=== PATIENT | female | born 1950 | race Caucasian/White ===

== ENCOUNTER 2017-12-09 07:44 | Outpatient (CLI) | payer MEDICARE, BC | END 2017-12-09 07:45 | disposition home or self-care (01) | LOC: BICULT 07:44 | PROVIDERS: ATTEND Urology | DX: N20.0 Calculus of kidney (principal); E21.3 Hyperparathyroidism, unspecified; R35.0 Frequency of micturition | CPT/HCPCS: 74018; 76770 ==

== ENCOUNTER 2018-02-11 17:49 | Observation (INO) | payer MEDICARE, BC ==
[2018-02-11 18:39] LABS: #Eosinphils 0.1 thou/uL (0.0-0.7); #Lymphocytes 2.7 thou/uL (1.20-3.40); #Monocytes 0.4 thou/uL (0.11-0.59); #Neutrophils 4.5 thou/uL (1.40-6.50); %Basophils 0.4 % (0.0-1.0); %Eosinophils 0.9 % (0.0-10.0); %Lymphocytes 34.9 % (21.0-51.0); %Monocytes 4.7 % (0.0-10.0); %Neutrophils 59.2 % (42.0-75.0); Hemoglobin 13.5 g/dL (12.0-16.0); Mean Corpuscular HGB CONC 35.9 g/dL (32.0-36.0); Mean Corpuscular Hemoglobin 34.1 pg (27.0-31.0); Mean Corpuscular Volume 95.1 fL (78.0-98.0); Mean Platelet Volume 7.3 fL (7.4-10.4); Platelet Count 275 thou/uL (130-400); RBC Distribution Width 12.5 % (11.5-14.5); Red Blood Cell (RBC) Count 3.97 mill/uL (4.20-5.40); White Blood Cell (WBC) Count 7.7 thou/uL (4.8-10.8)
[2018-02-11 19:04] LABS: ALT (SGPT) 100 U/L (8-55); AST (SGOT) 89 U/L (5-34); Albumin 4.5 g/dL (3.4-4.8); Alkaline Phosphatase 117 U/L (40-150); Anion Gap 17 mmol/L (10-20); BUN (Urea Nitrogen) 17 mg/dL (9.8-20.1); Bilirubin, Total 0.7 mg/dL (0.2-1.2); Calc. Creatinine Clearance 0 mL/min (70-130); Calcium 9.9 mg/dL (7.8-10.44); Carbon Dioxide 23 mmol/L (23-31); Chloride 102 mmol/L (98-107); Estimated GFR-MDRD 54; Globulin 3.2 g/dL (2.4-3.5); Glucose 108 mg/dL (80-115); Magnesium 1.9 mg/dL (1.6-2.6); Potassium 3.6 mmol/L (3.5-5.1); Protein, Total 7.7 g/dL (6.0-8.3); Sodium 138 mmol/L (136-145)
[2018-02-11 19:06] LABS: Troponin I Less than 0.010 ng/mL (< 0.028)
--- NOTE | 2018-02-11 19:14 | RAD ---
PORTABLE CHEST: 02/11/18 HISTORY: Syncope. COMPARISON: 01/06/09. Cardiomegaly. The lungs are clear. No infiltrate or vascular congestion. IMPRESSION: Mild cardiomegaly. No acute lung process. POS: [facility]
[2018-02-12 02:39] VITALS: BMI 38.9
[2018-02-12] MEDS ORDERED: ALPRAZolam 0.5 MG TAB PO PRN (03:21)
[2018-02-12] MEDS ORDERED: Ondansetron HCl/PF 4 MG/2 ML Vial IVP PRN (03:22)
[2018-02-12] MEDS ORDERED: Acetaminophen 325 MG TAB PO PRN (03:22)
[2018-02-12 06:06] LABS: #Eosinphils 0.1 thou/uL (0.0-0.7); #Lymphocytes 2.4 thou/uL (1.20-3.40); #Monocytes 0.5 thou/uL (0.11-0.59); #Neutrophils 4.5 thou/uL (1.40-6.50); %Basophils 0.5 % (0.0-1.0); %Eosinophils 1.2 % (0.0-10.0); %Lymphocytes 32.1 % (21.0-51.0); %Monocytes 6.4 % (0.0-10.0); %Neutrophils 59.8 % (42.0-75.0); Hemoglobin 12.4 g/dL (12.0-16.0); Mean Corpuscular HGB CONC 35.9 g/dL (32.0-36.0); Mean Corpuscular Hemoglobin 34.3 pg (27.0-31.0); Mean Corpuscular Volume 95.5 fL (78.0-98.0); Mean Platelet Volume 7.1 fL (7.4-10.4); Platelet Count 223 thou/uL (130-400); RBC Distribution Width 12.4 % (11.5-14.5); Red Blood Cell (RBC) Count 3.62 mill/uL (4.20-5.40); White Blood Cell (WBC) Count 7.5 thou/uL (4.8-10.8)
[2018-02-12 06:15] LABS: Anion Gap 13 mmol/L (10-20); BUN (Urea Nitrogen) 17 mg/dL (9.8-20.1); Calc. Creatinine Clearance 82 mL/min (70-130); Calcium 8.8 mg/dL (7.8-10.44); Carbon Dioxide 24 mmol/L (23-31); Chloride 105 mmol/L (98-107); Estimated GFR-MDRD 53; Glucose 105 mg/dL (80-115); Potassium 3.5 mmol/L (3.5-5.1); Sodium 138 mmol/L (136-145)
--- NOTE | 2018-02-12 08:19 | HP ---
CODE STATUS: FULL CODE. TIME OF EVALUATION: 12:50 p.m. PRIMARY CARE PHYSICIAN: Dr. Cuca Rivera. CHIEF COMPLAINT: Syncope. HISTORY OF PRESENT ILLNESS: This is a 67-year-old female patient with past medical history of hypert ension, hyperlipidemia, who came to the hospital after having 2 episodes of syncope, one that was on , the second one was yesterday, no clear triggers, no alleviating factors, patient did not re call the event happened, there is no ____ symptoms. She reported that she had no infection. REVIEW OF SYSTEMS: Constitutional: No fever, no chills, no generalized weakness. Respiratory: No cough, no sputum production, no shortness of breath. Cardiovascular: The patient has no chest pain, palpitation, or shortness of breath. Gastrointestinal: No nausea, vomiting, diarrhea or abdominal pain. TEACHING MUSIC LESSONS: No dizziness, headache or feeling lightheaded. The patient also reported episode of syn cope. Genitourinary: No burning with urination. Extremities: No leg swelling. All other systems were reviewed and negative except for the findings mentioned above. PAST MEDICAL HISTORY: Positive for hyperlipidemia, hypertension, kidney stones. PAST SURGICAL HISTORY: Abdominal surgery due to blocked bowel x2, hernia repair, orthopedic surgery, left knee, both ankles. PSYCHIATRIC HISTORY: Includes anxiety and depression. SOCIAL HISTORY: The patient drinks every day with less than 5 drinks per day. No drugs. No smoking . FAMILY HISTORY: Mother had a stroke. Father had lung cancer. REPORTED MEDICATIONS: Bystolic, losartan, alprazolam, atorvastatin, allopurinol, esomeprazole. PHYSICAL EXAMINATION: VITAL SIGNS: On presentation, blood pressure 114/49 with heart rate 61, respiratory rate was 16, tem perature 99, oxygen saturation 96% on room air. GENERAL APPEARANCE: The patient is alert, oriented, not in any acute distress. HEENT: Eyes: Normal conjunctivae. Moist oral mucosa. Anicteric. NECK: No JVD. RESPIRATORY: Bilateral air entry. No rales, no wheezing. Symmetric expansion. CARDIOVASCULAR: Normal rate, regular rhythm, no murmurs, no gallop. No edema. ABDOMEN: Soft, normal bowel sounds. MUSCULOSKELETAL: Baseline range of motion and strength. No tenderness. SKIN: Warm and intact. No pallor, no rash, no redness. NEUROLOGIC: Baseline sensory. No evidence of any new focal weakness. Baseline speech. Cranial ner ves seems to be intact. PSYCHIATRIC: The patient is in a good mood. No anxiety. Oriented and optimal judgment. LABORATORY DATA AND IMAGING: EKG was reviewed. The patient had normal sinus rhythm with a rate of 6 0, waves inverted in V1, V2 and V3. X-Bojorquez was reviewed. The patient has mild cardiomegaly, no acut e process. The labs were checked. Patient has white count 7.7, hemoglobin 13.5, MCV 95.1, platelet count 275. Sodium 138, potassium 3.6, chloride 102, carbon dioxide 23, anion gap 17, AST 89, ALT 100 . The rest of the chemistry is normal. ASSESSMENT AND PLAN: The patient was placed in the hospital for the following medical problems: 1. Syncope that has happened twice, patient has no ____ sudden arrhythmia causing the syncope, no cl ear triggers, we will keep the patient on the monitor, we will do echo, we will do carotid Doppler, a nd consult Cardiology if needed for assistance with this patient. 2. Anxiety, continue with the Xanax. 3. Hyperlipidemia. We will reconcile the home medication. Continue atorvastatin, low cholesterol d iet. 4. Deep venous thrombosis prophylaxis.
--- NOTE | 2018-02-12 08:40 | ULT ---
CAROTID DUPLEX ULTRASOUND: INDICATION: History of syncope. FINDINGS: No occlusion is grossly evident. No large visualized atherosclerotic plaque is noted. Peak systolic velocity in the right CCA is 87.1 cm/s and the left was 64.6 cm/s. Peak systolic velocity in the right ICA was 44.3 cm/s and the left was 55.9 cm/s. The right IC:CC ratio is 0.51 and the left was 0.87. Antegrade flow is seen in both vertebral arteries. IMPRESSION: No hemodynamically significant stenosis in the internal carotid artery. POS: [facility]
[2018-02-12] MEDS: Enoxaparin Sodium 40 MG/0.4 ML SYRINGE SC SCH (08:52)
[2018-02-12] MEDS: Nebivolol HCl 5 MG TAB PO SCH (08:52)
[2018-02-12] MEDS: Allopurinol 300 MG TAB PO SCH (08:52)
[2018-02-12] MEDS: Atorvastatin Calcium 20 MG TAB PO SCH (08:53)
[2018-02-12] MEDS: Escitalopram Oxalate 20 mg Tablet PO SCH (08:53)
[2018-02-13 07:54] VITALS: BP 122/60; TEMP 97.9
--- NOTE | 2018-02-13 08:53 | DIS ---
DATE OF ADMISSION: 02/12/2018 DATE OF DISCHARGE: 02/13/2018 DISPOSITION: Discharged home. PRIMARY CARE PROVIDER: Cuca Rivera MD. FINAL DIAGNOSES: Syncope and collapse, hypertension, dyslipidemia. DISCHARGE MEDICATIONS: Bystolic 5 mg daily, losartan/hydrochlorothiazide 125 one a day, Lexapro 20 m g a day, Lipitor 20 mg a day, allopurinol 300 mg a day, Xanax 0.5 mg p.o. b.i.d. p.r.n. ALLERGIES: No medical allergies. CODE STATUS: FULL. DIET: Heart healthy. PENDING AT THE TIME OF DISCHARGE: Nothing. HOSPITAL COURSE: [facility] with 2 episodes of syncope. Patient's admitting laboratory, CBC essentially normal. Co mp metabolic profile essentially normal except for some minimally elevated transaminases, AST 89 and ALT 100. Patient was monitored, had regular sinus rhythm at 60 plus or minus. Her carotid ultrasoun ds showed no evidence of carotid stenosis. Her echocardiogram showed a LVEF of 60-65 with some minim al mitral insufficiency. The patient has done well during her hospital stay with no recurrent sympto ms. She is desirous of going home. Her vital signs this time, pulse 59, respirations 16, blood pres sure 134/65, temperature 98.4. Cardiorespiratory exam, unremarkable. She is being discharged to [facility] with Dr. Cuca Rivera. She has an appointment on the of this month. The patient also had some diarrhea. Stool lactoferrin was normal. C. difficile was antigen and toxin negative. Shig a toxin, Campylobacter were negative. CONSULTATIONS: None. PROCEDURES: None.
[2018-02-13] MEDS: Allopurinol 300 MG TAB PO SCH (09:41)
[2018-02-13] MEDS: Atorvastatin Calcium 20 MG TAB PO SCH (09:41)
[2018-02-13] MEDS: Escitalopram Oxalate 20 mg Tablet PO SCH (09:41)
[2018-02-13] MEDS: Nebivolol HCl 5 MG TAB PO SCH (09:41)
[2018-02-13] MEDS: Enoxaparin Sodium 40 MG/0.4 ML SYRINGE SC SCH (09:42)
[2018-02-13] MEDS ORDERED: Loperamide HCl 2 MG CAP PO SCH (11:00)
== END 2018-02-13 12:12 | disposition home or self-care (01) ==
LOC: ERS 17:49 → 2SW 21:30
PROVIDERS: ADMIT Hospitalist; ATTEND Hospitalist
DX: R55 Syncope and collapse (principal); I10 Essential (primary) hypertension; E78.5 Hyperlipidemia, unspecified; Z91.040 Latex allergy status; Z79.899 Other long term (current) drug therapy
CPT/HCPCS: 71045; 80048; 80053; 83630; 83735; 84484; 85025 ×2; 87045; 87046; 87324; 87449 ×2; 87899 ×2; 93005; 93306; 93880; 96360; 96361; 96372 ×2; 99285; G0378; 36415; J1650

== ENCOUNTER 2018-05-10 18:25 | Emergency (ER) | payer MEDICARE, BC ==
[2018-05-10] MEDS ORDERED: Lorazepam 2 MG/ML VIAL ONE (18:46)
[2018-05-10 19:11] LABS: #Basophils 0.1 thou/uL (0.0-0.2); #Eosinphils 0.1 thou/uL (0.0-0.7); #Lymphocytes 3.3 thou/uL (1.20-3.40); #Monocytes 0.3 thou/uL (0.11-0.59); #Neutrophils 3.7 thou/uL (1.40-6.50); %Basophils 1.4 % (0.0-1.0); %Eosinophils 0.7 % (0.0-10.0); %Monocytes 4.4 % (0.0-10.0); %Neutrophils 49.6 % (42.0-75.0); Hemoglobin 13.5 g/dL (12.0-16.0); Mean Corpuscular HGB CONC 34.3 g/dL (32.0-36.0); Mean Corpuscular Volume 96.4 fL (78.0-98.0); Mean Platelet Volume 7.6 fL (7.4-10.4); Platelet Count 255 thou/uL (130-400); RBC Distribution Width 12.5 % (11.5-14.5); Red Blood Cell (RBC) Count 4.08 mill/uL (4.20-5.40); White Blood Cell (WBC) Count 7.4 thou/uL (4.8-10.8)
[2018-05-10 19:35] LABS: ALT (SGPT) 52 U/L (8-55); AST (SGOT) 60 U/L (5-34); Acetaminophen Less than 6.0 mcg/mL (10.0-30.0); Albumin 4.5 g/dL (3.4-4.8); Alcohol 221 mg/dL (Less than 10); Alkaline Phosphatase 99 U/L (40-150); Anion Gap 15 mmol/L (10-20); BUN (Urea Nitrogen) 14 mg/dL (9.8-20.1); Bilirubin, Total 0.5 mg/dL (0.2-1.2); Calc. Creatinine Clearance 0 mL/min (70-130); Calcium 9.4 mg/dL (7.8-10.44); Carbon Dioxide 23 mmol/L (23-31); Chloride 105 mmol/L (98-107); Estimated GFR-MDRD 67; Globulin 3.3 g/dL (2.4-3.5); Glucose 110 mg/dL (80-115); Potassium 4.3 mmol/L (3.5-5.1); Protein, Total 7.8 g/dL (6.0-8.3); Salicylate Less than 8.0 mg/dL (15.0-30.0); Sodium 139 mmol/L (136-145)
[2018-05-10 20:00] LABS: Bilirubin Negative (Negative); Blood, Urine Negative (Negative); Clarity CLEAR (Clear); Glucose, Urine (Dipstick) Negative (Negative); Leukocyte Small (Negative); Nitrite Negative (Negative); Protein, Urine (Dipstick) Negative (Neg-Trace); Specific Gravity, Urine 1.006 (1.002-1.036); Urobilinogen 0.2 mg/dL (0.2-1.0)
[2018-05-10 20:02] LABS: Bacteria/HPF 4+ HPF (None Seen); Hyaline Casts/LPF 0-3 HYALINE CAST LPF (0-3 Hyaline); Pathc Cast-AUWi Flag 0.14 (0-2.49); RBC/HPF 0-3 HPF (0-3); Squamous Epithelial None Seen HPF (0-3)
[2018-05-10 20:11] LABS: Amphetamine Not Detected (NotDetected); Barbiturates Screen Not Detected (NotDetected); Benzodiazepine Screen Not Detected (NotDetected); Cocaine Metabolite Screen Not Detected (NotDetected); Medtox Control Line Valid? VALID (VALID); Medtox Reader # READER 1; Methadone Not Detected (NotDetected); Methamphetamine Not Detected (NotDetected); Opiate Screen Not Detected (NotDetected); Oxycodone Screen Not Detected (NotDetected); Phencyclidine (PCP) Not Detected (NotDetected); THC/Cannabinoid Screen Not Detected (NotDetected); Tricyclic Screen Not Detected (NotDetected)
== END 2018-05-11 01:41 | disposition home or self-care (01) ==
LOC: ERS 18:25
DX: F32.9 Major depressive disorder, single episode, unspecified (principal); F10.129 Alcohol abuse with intoxication, unspecified; E78.5 Hyperlipidemia, unspecified; I10 Essential (primary) hypertension; Z87.442 Personal history of urinary calculi; F41.9 Anxiety disorder, unspecified; Z79.899 Other long term (current) drug therapy
CPT/HCPCS: 36415; 80053; 80306; 80307; 81003; 81015; 84443; 85025; 93005; 96372; J2060

== ENCOUNTER 2018-06-26 15:21 | Outpatient (CLI) | payer MEDICARE, BC | END 2018-06-26 15:22 | disposition home or self-care (01) | LOC: BICMAMMO 15:21 | PROVIDERS: ATTEND Physician Assistant | DX: Z12.31 Encounter for screening mammogram for malignant neoplasm of breast (principal); Z80.3 Family history of malignant neoplasm of breast | CPT/HCPCS: 77063; 77067 ==

== ENCOUNTER 2018-10-05 18:07 | Emergency (ER) | payer MEDICARE, BC ==
[2018-10-05] MEDS ORDERED: Morphine 4 MG/ML VIAL ONE (18:33)
--- NOTE | 2018-10-05 19:10 | RAD ---
PORTABLE CHEST: 10/05/18 HISTORY: Fall. COMPARISON: 02/11/18 study. Heart size is slightly enlarged. Mediastinal structures are unremarkable. The lungs are clear of infi ltrates. No rib fractures identified. IMPRESSION: Mild cardiomegaly. POS: [facility]
[2018-10-05 19:17] LABS: #Basophils 0.1 thou/uL (0.0-0.2); #Eosinphils 0.1 thou/uL (0.0-0.7); #Lymphocytes 2.3 thou/uL (1.20-3.40); #Monocytes 0.4 thou/uL (0.11-0.59); #Neutrophils 4.7 thou/uL (1.40-6.50); %Basophils 0.7 % (0.0-1.0); %Eosinophils 1.5 % (0.0-10.0); %Lymphocytes 30.5 % (21.0-51.0); %Monocytes 5.7 % (0.0-10.0); %Neutrophils 61.6 % (42.0-75.0); Hemoglobin 12.3 g/dL (12.0-16.0); Mean Corpuscular HGB CONC 34.3 g/dL (32.0-36.0); Mean Corpuscular Hemoglobin 32.1 pg (27.0-31.0); Mean Corpuscular Volume 93.7 fL (78.0-98.0); Mean Platelet Volume 7.5 fL (7.4-10.4); Platelet Count 241 thou/uL (130-400); RBC Distribution Width 12.5 % (11.5-14.5); Red Blood Cell (RBC) Count 3.84 mill/uL (4.20-5.40); White Blood Cell (WBC) Count 7.6 thou/uL (4.8-10.8)
[2018-10-05] MEDS ORDERED: Adacel (T-DAP) 0.5 ML SYRINGE ONE ×2 (19:20→19:28)
[2018-10-05] MEDS ORDERED: Lidocaine 1% w/Epinephrine 1:100K 20 ML VIAL ONE (19:20)
[2018-10-05 19:28] LABS: ALT (SGPT) 26 U/L (8-55); AST (SGOT) 27 U/L (5-34); Albumin 4.1 g/dL (3.4-4.8); Alkaline Phosphatase 92 U/L (40-150); Anion Gap 13 mmol/L (10-20); BUN (Urea Nitrogen) 13 mg/dL (9.8-20.1); Bilirubin, Total 0.4 mg/dL (0.2-1.2); CK (CPK) 177 U/L (29-168); Calc. Creatinine Clearance 0 mL/min (70-130); Calcium 9.3 mg/dL (7.8-10.44); Carbon Dioxide 27 mmol/L (23-31); Chloride 105 mmol/L (98-107); Estimated GFR-MDRD 71; Globulin 2.5 g/dL (2.4-3.5); Glucose 89 mg/dL (80-115); Potassium 3.5 mmol/L (3.5-5.1); Protein, Total 6.6 g/dL (6.0-8.3); Sodium 141 mmol/L (136-145)
--- NOTE | 2018-10-05 19:35 | CT ---
NONCONTRAST CT HEAD: 10/05/18 HISTORY: Altered mental status. Post fall. Laceration of posterior head. COMPARISON: 01/06/09. FINDINGS: There is scattered areas of mild diminished attenuation of the periventricular white matter which are nonspecific but likely reflective of mild chronic small vessel ischemic changes. There is no evidenc e of an acute cortical infarction, hemorrhage, mass effect, or midline shift. Cerebral and cerebellar volume loss is noted. The ventricular system is normal in size, shape and pos ition for the degree of sulcal atrophy. The visualized paranasal sinuses and mastoid air cells are clear. There is posterior parietal scalp soft tissue swelling with gas in subcutaneous soft tissues related to laceration. No underlying calvarial fracture is appreciated. IMPRESSION: 1. No acute intracranial abnormalities demonstrated. 2. Chronic small vessel ischemic changes and cerebral as well as cerebellar volume loss. 3. Posterior parietal scalp hematoma and associated laceration. POS: [facility]
--- NOTE | 2018-10-06 12:32 | EKG ---
Test Reason : Blood Pressure : / mmHG Vent. Rate : 058 BPM Atrial Rate : 058 BPM P-R Int : 200 ms QRS Dur : 096 ms QT Int : 468 ms P-R-T Axes : 056 -31 027 degrees QTc Int : 459 ms Sinus bradycardia Left axis deviation Abnormal ECG Confirmed by CARMEN MICHEL DO ([id number]), rewrite editor FREDY LLANOS ([id number]) on 10/06/2018 12:31:40 PM Referred By: Confirmed By:CARMEN MICHEL DO
== END 2018-10-05 20:21 | disposition home or self-care (01) ==
LOC: ERS 18:07
DX: S01.01XA Laceration without foreign body of scalp, initial encounter (principal); E78.5 Hyperlipidemia, unspecified; F41.9 Anxiety disorder, unspecified; I10 Essential (primary) hypertension; F32.9 Major depressive disorder, single episode, unspecified; Z79.899 Other long term (current) drug therapy; Z87.442 Personal history of urinary calculi; W19.XXXA Unspecified fall, initial encounter
CPT/HCPCS: 12002; 36415; 70450; 71045; 80053; 82550; 84484; 85025; 90471; 90715; 93005; 96372; J2001; J2270

== ENCOUNTER 2018-11-02 13:27 | Outpatient (CLI) | payer MEDICARE, BC | END 2018-11-02 13:28 | disposition home or self-care (01) | LOC: ULT 13:27 | PROVIDERS: ATTEND Internal Medicine | DX: I51.7 Cardiomegaly (principal); I08.3 Combined rheumatic disorders of mitral, aortic and tricuspid valves | CPT/HCPCS: 93306 ==

== ENCOUNTER 2018-12-07 10:26 | Outpatient (CLI) | payer MEDICARE, BC ==
--- NOTE | 2018-12-07 10:58 | ULT ---
US Renal Bilateral STANDARD History: [Kidney stones] Comparison: Ultrasound exam 2018 Findings: Real-time grayscale and color evaluation of the kidneys and urinary bladder was performed. A kidney measures 10 x 4.2 x 4 cm and the left kidney measures 10.7 x 4.3 x 3.3 cm. Calculus interpol ar left kidney. No mass or hydronephrosis. Urinary bladder volume is unremarkable. Impression: Nonobstructive interpolar left renal calculus.
--- NOTE | 2018-12-07 11:02 | RAD ---
EXAM: Single view of the abdomen HISTORY: Nephrolithiasis COMPARISON: 11/19/2015 FINDINGS: Single view of the abdomen shows a nonspecific, nonobstructive bowel gas pattern. No suspi cious calcifications are seen. The bones are unremarkable. Phleboliths are seen in the pelvis. Cholecystectomy clips are present. IMPRESSION: Unremarkable exam
== END 2018-12-07 10:27 | disposition home or self-care (01) ==
LOC: BICULT 10:26
PROVIDERS: ATTEND Urology
DX: N20.0 Calculus of kidney (principal)
CPT/HCPCS: 74018; 76770

== ENCOUNTER 2018-12-12 10:17 | Outpatient (CLI) | payer MEDICARE, BC ==
--- NOTE | 2018-12-12 12:31 | BD ---
Exam: DEXA Bone Density History: Post-menopausal osteoporosis screening. Lumbar Spine: BMD (g/cm2) L1 0.993 T-Score: 0.0 L2 0.933 T-Score: -0.9 L3 0.947 T-Score: -1.2 L4 0.939 T-Score: -1.1 L1-L4 0.951 T-Score: -0.9 Femoral Neck: 0.793 T-Score: -0.5 Total Femur: 1.000 T-Score: 0.5 Impression: Bone mineral density of the lumbar spine and femoral neck are both within normal range. POS: [facility]
== END 2018-12-12 10:18 | disposition home or self-care (01) ==
LOC: BICMAMMO 10:17
PROVIDERS: ATTEND Internal Medicine
DX: Z78.0 Asymptomatic menopausal state (principal)
CPT/HCPCS: 77080

== ENCOUNTER 2019-02-24 22:08 | Emergency (ER) | payer MEDICARE, BC ==
--- NOTE | 2019-02-24 23:25 | CT ---
BRAIN CT WITHOUT IV CONTRAST: 02/24/19 HISTORY: Injury, fall, scalp posterior hematoma. No focal mass or midline shift. No intra or extra-axial hemorrhage. Sinuses and mastoids are clear of acute process. Posterior right sided scalp hematoma. IMPRESSION: Scalp hematoma. No mass or bleed or other significant acute intracranial process. POS: [facility]
--- NOTE | 2019-02-24 23:27 | CT ---
CERVICAL SPINE CT SCAN WITHOUT IV CONTRAST: 02/24/19 HISTORY: Injury, fall. Bone demineralization. Disc osteophytosis particularly at C5-C6 with some moderate associated canal, lateral recess, and foraminal stenosis. No evidence for acute fracture or dislocation. IMPRESSION: Cervical spondylosis. Bone demineralization. No acute fracture or dislocation. POS: [facility]
[2019-02-24] MEDS ORDERED: traMADol HCl 50 MG TAB ONE (23:49)
[2019-02-24] MEDS ORDERED: Adacel (T-DAP) 0.5 ML SYRINGE ONE (23:50)
[2019-02-25] MEDS ORDERED: Lidocaine 1% w/Epinephrine 1:100K 20 ML VIAL ONE (00:19)
== END 2019-02-25 00:01 | disposition home or self-care (01) ==
LOC: ERS 22:08
DX: S01.01XA Laceration without foreign body of scalp, initial encounter (principal); E78.5 Hyperlipidemia, unspecified; I10 Essential (primary) hypertension; F41.9 Anxiety disorder, unspecified; F32.9 Major depressive disorder, single episode, unspecified; Z79.899 Other long term (current) drug therapy; W19.XXXA Unspecified fall, initial encounter
CPT/HCPCS: 12001; 70450; 72125; 90471; 90715; J2001

== ENCOUNTER 2019-03-22 08:32 | Outpatient (CLI) | payer MEDICARE, BC ==
[2019-03-22 14:24] LABS: #Eosinphils 0.1 thou/uL (0.0-0.7); #Lymphocytes 2.1 thou/uL (1.20-3.40); #Monocytes 0.3 thou/uL (0.11-0.59); %Basophils 0.7 % (0.0-1.0); %Eosinophils 0.8 % (0.0-10.0); %Lymphocytes 32.1 % (21.0-51.0); %Monocytes 4.8 % (0.0-10.0); %Neutrophils 61.6 % (42.0-75.0); Hemoglobin 12.9 g/dL (12.0-16.0); Mean Corpuscular HGB CONC 34.2 g/dL (32.0-36.0); Mean Corpuscular Hemoglobin 30.4 pg (27.0-31.0); Mean Corpuscular Volume 89.1 fL (78.0-98.0); Mean Platelet Volume 8.4 fL (7.4-10.4); Platelet Count 231 thou/uL (130-400); RBC Distribution Width 12.5 % (11.5-14.5); Red Blood Cell (RBC) Count 4.22 mill/uL (4.20-5.40); White Blood Cell (WBC) Count 6.5 thou/uL (4.8-10.8)
[2019-03-22 14:29] LABS: Prothrombin Time 13.5 SEC (12.0-14.7)
[2019-03-22 14:38] LABS: Anion Gap 13 mmol/L (10-20); BUN (Urea Nitrogen) 13 mg/dL (9.8-20.1); Calc. Creatinine Clearance 0 mL/min (70-130); Calcium 9.4 mg/dL (7.8-10.44); Carbon Dioxide 26 mmol/L (23-31); Chloride 104 mmol/L (98-107); Estimated GFR-MDRD 78; Glucose 90 mg/dL (80-115); Potassium 3.7 mmol/L (3.5-5.1); Sodium 139 mmol/L (136-145)
[2019-03-22 15:18] LABS: Bacteria/HPF None Seen HPF (None Seen); Bilirubin Negative (Negative); Blood, Urine Negative (Negative); Clarity Clear (Clear); Glucose, Urine (Dipstick) Normal (Negative); Leukocyte 75 Leu/uL (Negative); Nitrite Negative (Negative); Protein, Urine (Dipstick) Negative (Neg-Trace); RBC/HPF 0-3 HPF (0-3); Squamous Epithelial 0-3 HPF (0-3); Urobilinogen Normal mg/dL (Less than 2); WBC/HPF 0-3 HPF (0-3)
== END 2019-03-22 08:33 | disposition home or self-care (01) ==
LOC: LABBT 08:32
PROVIDERS: ATTEND Orthopaedic Surgery
DX: Z01.818 Encounter for other preprocedural examination (principal); M17.11 Unilateral primary osteoarthritis, right knee
CPT/HCPCS: 80048; 81001; 85025; 85610; 87081; 93005; 93010

== ENCOUNTER 2019-03-22 13:00 | Inpatient (IN) | payer MEDICARE, BC ==
[2019-03-22 12:56] VITALS: BMI 31.5
[2019-04-03] MEDS ORDERED: Tranexamic Acid 1,000 MG/10 ML VIAL ONE (08:28)
[2019-04-03] MEDS ORDERED: Sodium Chloride 0.9% 100 ML ONE (08:28)
[2019-04-03] MEDS ORDERED: Acetaminophen 325 MG TAB PO PRN (08:44)
[2019-04-03] MEDS ORDERED: Ketorolac Tromethamine 30 MG/ML VIAL IVP PRN ×2 (08:44→09:43)
[2019-04-03] MEDS ORDERED: Morphine 4 MG/ML VIAL SLOW IVP PRN (08:44)
[2019-04-03] MEDS ORDERED: Promethazine HCl 25 MG/ML VIAL IM PRN ×3 (08:44→12:15)
[2019-04-03] MEDS ORDERED: Ondansetron PF 4 MG/2 ML Vial IVP PRN ×2 (08:44→09:43)
[2019-04-03] MEDS ORDERED: traMADol HCl 50 MG TAB PO PRN ×3 (08:44→09:43)
[2019-04-03] MEDS ORDERED: HYDROcodone/Acetaminophen 10/325 mg Tablet PO PRN ×2 (08:44)
[2019-04-03] MEDS ORDERED: Zolpidem Tartrate 5 MG TAB PO PRN ×2 (08:44→09:43)
[2019-04-03] MEDS ORDERED: diphenhydrAMINE 25 MG CAP PO PRN (08:44)
[2019-04-03] MEDS ORDERED: Midazolam HCl 2 mg/2 ml Vial ONE (08:53)
[2019-04-03] MEDS ORDERED: Fentanyl 100 MCG/2 ML VIAL ONE ×2 (08:53→12:35)
[2019-04-03] MEDS ORDERED: Ondansetron HCl/PF 4 MG/2 ML Vial IVP PRN ×2 (08:55→12:15)
[2019-04-03] MEDS ORDERED: Ropivacaine HCl/PF 250 ML in Premix Bag 1 BAG NERVE BLCK SCH (09:43)
[2019-04-03] MEDS ORDERED: Fentanyl 100 MCG/2 ML VIAL IV PRN (09:44)
[2019-04-03] MEDS ORDERED: PACU-Morphine 4MG/ML VIAL SLOW IVP PRN (12:15)
[2019-04-03] MEDS ORDERED: HYDROmorphone 2 MG/ML VIAL SLOW IVP PRN (12:15)
[2019-04-03] MEDS ORDERED: Promethazine HCl 25 MG/ML VIAL SLOW IVP PRN (12:15)
--- NOTE | 2019-04-03 13:31 | OP ---
DATE OF PROCEDURE: 04/03/2019 PREOPERATIVE DIAGNOSIS: End-stage tricompartmental osteoarthritis, right knee. POSTOPERATIVE DIAGNOSIS: End-stage tricompartmental osteoarthritis, right knee. OPERATIVE PROCEDURE: Cemented cruciate sparing computer assisted navigated right total knee arthroplasty. SKATE HOP: Brain Fletcher PA-C ANESTHESIA: General via LMA augmented with indwelling adductor canal block and a single-shot anterior sciatic block. COMPONENTS USED: [employer] triathlon size 4 cruciate sparing cemented femoral component with a size 3 cemented primary tibial baseplate, 9 mm polyethylene fixed bearing insert, and an A29 patellar button. TOURNIQUET TIME: 59 minutes at 300 mmHg. ESTIMATED BLOOD LOSS: Less than 100. INPUT: 1 L of crystalloid. OUTPUT: Output was 200 mL clear yellow urine. FINDINGS: End-stage severe degenerative tricompartmental disease, [id number] arthrosis, periarticular osteophyte formation, large serous effusion, hypertrophic synovium, and drains consistent with chronic degenerative genu varum. DRAINS: None. SPECIMENS: None. COMPLICATIONS: None. COUNTS: Correct. INDICATION FOR SURGERY: Kaila is a 69-year-old white female, who has had progressive not right knee pain and problem with standing and walking for the last 5 to 7 years. She has failed conservative management and elected to proceed with total knee arthroplasty as definitive treatment of her pain. PROCEDURE IN DETAIL: After informed consent was obtained in the preoperative holding area, the patient was taken to the operative suite where general anesthesia was induced. Once adequate level of general anesthesia was obtained, the patient was positioned and a well-padded tourniquet was placed around the right proximal thigh. The right lower extremity was then prepped and draped in the usual sterile fashion. Prior to exsanguination, a time-out was called and all members of the surgical team agreed upon site, surgeon, and patient. The extremity was then exsanguinated and the tourniquet was raised. A midline longitudinal incision was then made directly over the patella extending 2 fingerbreadths above the superior pole of the patella and 2 fingerbreadths inferior to the inferior patellar pole of the patella. Deeper subcutaneous layers were dissected sharply and local bleeding was controlled with Bovie electrocautery. A quad tendon longitudinal split was then made sharply and a median parapatellar arthrotomy was carried out both sharp and with Bovie electrocautery, carried down to 1 fingerbreadth medial to the tibial tubercle. The knee was then placed into flexion and the patella was everted nicely, and a copious fat pad ectomy was performed allowing for greater exposure of the tibia. The computer-assisted distal femoral fiducial was then placed and pinned firmly, and the distal femoral cutting guide was pinned firmly into place. The oscillating saw was then used to remove the appropriate amount of bone. The 4-in-1 cutting block was then placed on the distal femur and the oscillating saw was used to remove the appropriate amount of bone off the anterior, posterior, and chamfer cuts. After completion of bone cuts, the anterior cruciate ligament was resected sharply and the posterior cruciate ligament retractor was placed and the tibia was subluxed for better exposure. Partial meniscectomies were carried out, and the tibial computer-assisted fiducial was pinned, and the cutting guide was placed. Oscillating saw was then used to remove the bone, with Hohmann retractors used to take care and protect the collateral ligaments. After the tibial resection was performed, a laminar hospital staff pharmacist was placed in between the freshened bone cuts. The knee placed at 90 degrees and further bilateral meniscectomies were carried out, and the curved osteotome and curettage were used to remove any excess bone spurs in the posterior compartment. The trial femoral component, tibial baseplate were placed with the appropriate polyethylene trial insert with an appropriate polyethylene spacer and patellar button. The knee was taken through full range of motion with flexion and extension from 0 to 90 degrees and patellar broach squarely in the trochlea without any squinting or subluxation noted. The knee was also stable to varus and valgus stressing at 0, 15, 45, and 90 degrees of flexion. The drawer was negative. All trial components were then removed and the keel punch was used to provide the appropriate defect in the tibia with a mallet. The freshened bone cuts were copiously irrigated with pulsatile lavage of about 1.5 L to remove all excess debris. The freshened bone cuts were then dried with suction and lap sponge. The knee was placed in flexion and retractors were placed to provide access to all bone cuts. Tobramycin-impregnated methyl methacrylate cement was then placed on the freshened bone cuts and implants which were malleted firmly into place. Curettage and Points elevators were used to remove any excess bone cement. The knee was placed into full extension and the patellar button was placed under compression, and the cement was allowed to cure. Once completed, the components were again taken through full range of motion and copious irrigation of the knee was carried out with another liter of normal saline. All components were inspected fully with full range of motion and varus and valgus stressing. There was no laxity noted and full extension was observed clinically. Primary closure was accomplished with #2 interrupted Vicryl stitch of the arthrotomy defect. This was oversewn with a #2 running Quill barbed stitch. The gravitational platelet system was then injected into the arthrotomy prior to closure. The subcutaneous layer was then closed with a running 0 barbed Monocryl stitch and skin closure accomplished with a running subcuticular 3-0 Monocryl barbed Quill stitch and augmented with cement on the skin. Tourniquet was lowered. Good spontaneous return of distal pulses was noted clinically and a sterile dressing was applied to the incision. The procedure was terminated without any complications. The patient was awakened in the operative suite, and the patient was taken to the recovery room in stable condition. Job ID: [id number]
--- NOTE | 2019-04-03 13:52 | RAD ---
RIGHT KNEE: 04/03/19 Two views. HISTORY: Postop follow-up knee replacement. FINDINGS/IMPRESSION: Knee prosthesis has been placed. Components appears in adequate position and alignment. Postop leyva es are noted at the knee joint. POS: [facility]
[2019-04-03] MEDS ORDERED: Ropivacaine 0.5% HCl/PF (150 MG/30 ML VIAL) ONE (15:03)
[2019-04-03] MEDS ORDERED: Ropivacaine 0.2% HCl/PF (40 MG/20 ML VIAL) ONE (15:03)
[2019-04-03] MEDS ORDERED: ePHEDrine 50 MG/ML VIAL ONE (15:16)
[2019-04-03] MEDS ORDERED: Ketorolac Tromethamine 30 MG/ML VIAL ONE (15:16)
[2019-04-03] MEDS ORDERED: Lidocaine 1% PF 5 ML VIAL ONE (15:16)
[2019-04-03] MEDS ORDERED: Glycopyrrolate 0.2 MG/ML 5 ML SYRINGE ONE (15:16)
[2019-04-03] MEDS ORDERED: Ondansetron PF 4 MG/2 ML Vial ONE (15:16)
[2019-04-03] MEDS ORDERED: Dexamethasone 20 MG/5 ML VIAL ONE (15:16)
[2019-04-03] MEDS ORDERED: PROPOFOL 200 MG/20 ML VIAL ONE (15:16)
--- NOTE | 2019-04-03 16:11 | PDOC.HOSPP ---
- Subjective Encounter Date: 04/03/19 Encounter Time: 16:09 Subjective: pt is admitted for right total knee replacement, consulted for medical management Patient seen and examined. No new complaints. - Objective Vital Signs & Weight: Weight Weight 178 lb Additional Labs: [facility] Radiology Reviewed by me: Yes (knee xray reviewed ) Hospitalist ROS - Review of Systems ENT: denies: ear pain, ear discharge, nose pain, nose discharge, nose congestion , mouth pain, mouth swelling, throat pain, throat swelling, other Respiratory: denies: cough, dry, shortness of breath, hemoptysis, SOB with excertion, pleuritic pain, sputum, wheezing, other Cardiovascular: denies: chest pain, palpitations, orthopnea, paroxysmal noc. dyspnea, edema, light headedness, other Gastrointestinal: denies: nausea, vomitting, abdominal pain, diarrhea, constipation, melena, hematochezia, other Genitourinary: denies: dysuria, frequency, incontinence, hematuria, retention, other Musculoskeletal: denies: neck pain, shoulder pain, arm pain, back pain, hand pain, leg pain, foot pain, other Skin: denies: rash, lesions, baljeet, bruising, other - Exam General Appearance: NAD, awake alert Eye: PERRL, anicteric sclera ENT: normocephalic atraumatic, no oropharyngeal lesions Neck: supple, symmetric, no JVD, no thyromegaly Heart: RRR, no murmur, no gallops, no rubs Respiratory: CTAB, no wheezes, no rales, no ronchi Gastrointestinal: soft, non-tender, non-distended, normal bowel sounds Extremities: no cyanosis, no clubbing, no edema Extremeties - other findings: right knee with dressing, nerve block in place Skin: normal turgor, no lesions, no rashes Neurological: CN's grossly intact, normal sensation to touch Musculoskeletal: normal tone, normal strength, no muscle wasting Psychiatric: normal affect, normal behavior Hosp A/P (1) Status post total right knee replacement Code(s): Z96.651 - PRESENCE OF RIGHT ARTIFICIAL KNEE JOINT Status: Acute (2) Anxiety and depression Code(s): F41.9 - ANXIETY DISORDER, UNSPECIFIED; F32.9 - MAJOR DEPRESSIVE DISORDER, SINGLE EPISODE, UNSPECIFIED Status: Chronic (3) Dyslipidemia Code(s): E78.5 - HYPERLIPIDEMIA, UNSPECIFIED Status: Chronic (4) GERD (gastroesophageal reflux disease) Code(s): K21.9 - GASTRO-ESOPHAGEAL REFLUX DISEASE WITHOUT ESOPHAGITIS Status: Chronic (5) Gout Code(s): M10.9 - GOUT, UNSPECIFIED Status: Chronic (6) HTN (hypertension) Code(s): I10 - ESSENTIAL (PRIMARY) HYPERTENSION Status: Chronic (7) Obesity (BMI 30.0-34.9) Code(s): E66.9 - OBESITY, UNSPECIFIED Status: Chronic (8) Ventral hernia Code(s): K43.9 - VENTRAL HERNIA WITHOUT OBSTRUCTION OR GANGRENE Status: Chronic - Plan old records reviewed/req, PT/OT Continue aspirin for DVT prophylaxis as per protocol Home medication has been reconciled Medically stable continue PT/OT as per protocol Nerve block as per anesthesia Medication reviewed as above Symptomatic treatment Pain control code status - full code
[2019-04-03] MEDS: Sodium Chloride 0.9% 1,000 ML IV SCH ×3 (17:17→22:58)
[2019-04-03] MEDS: Allopurinol 300 MG TAB PO SCH (17:17)
[2019-04-03] MEDS: Losartan/Hydrochlorothiazide 100 mg/25 mg Tablet PO SCH (17:18)
[2019-04-03] MEDS: Aspirin 81 mg Enteric Coated Tablet PO SCH ×2 (17:18→19:49)
[2019-04-03] MEDS: Nebivolol HCl 5 MG TAB PO SCH (17:18)
[2019-04-03] MEDS: CEFAZOLIN 2 GM in Premix Bag 1 BAG IVPB SCH ×2 (17:26→23:13)
[2019-04-03] MEDS: ALPRAZolam 0.5 MG TAB PO SCH (19:49)
[2019-04-03] MEDS: traZODone HCl 50 MG TAB PO SCH (19:49)
[2019-04-03] MEDS: Trospium 20 MG TAB PO SCH (19:50)
[2019-04-04 04:40] LABS: Hemoglobin 11.3 g/dL (12.0-16.0); Mean Corpuscular HGB CONC 33.8 g/dL (32.0-36.0); Mean Corpuscular Hemoglobin 30.9 pg (27.0-31.0); Mean Corpuscular Volume 91.3 fL (78.0-98.0); Mean Platelet Volume 8.1 fL (7.4-10.4); Platelet Count 198 thou/uL (130-400); RBC Distribution Width 12.4 % (11.5-14.5); Red Blood Cell (RBC) Count 3.65 mill/uL (4.20-5.40); White Blood Cell (WBC) Count 8.1 thou/uL (4.8-10.8)
[2019-04-04] MEDS: Senokot S 8.6-50 MG TAB PO SCH ×2 (07:41→19:41)
[2019-04-04] MEDS: Allopurinol 300 MG TAB PO SCH (07:41)
[2019-04-04] MEDS: Multivitamin W/ Minerals 1 TAB PO SCH (07:41)
[2019-04-04] MEDS: Aspirin 81 mg Enteric Coated Tablet PO SCH ×2 (07:41→19:42)
[2019-04-04] MEDS: Losartan/Hydrochlorothiazide 100 mg/25 mg Tablet PO SCH ×2 (07:42→10:46)
[2019-04-04] MEDS: Ferrous Gluconate 324 MG TAB PO SCH ×2 (07:42→19:42)
[2019-04-04] MEDS: Trospium 20 MG TAB PO SCH ×2 (07:42→19:41)
[2019-04-04] MEDS: Nebivolol HCl 5 MG TAB PO SCH (07:42)
[2019-04-04] MEDS ORDERED: HYDROcodone/Acetaminophen 7.5/325 mg Tablet PO PRN (15:12)
[2019-04-04] MEDS: HYDROcodone/Acetaminophen 7.5/325 mg Tablet PO PRN ×2 (16:06→19:47)
[2019-04-04] MEDS: Sodium Chloride 0.9% 1,000 ML IV SCH ×2 (16:10→19:49)
[2019-04-04] MEDS ORDERED: Prevnar 13-Val Conj/PF 0.5 ML SYRINGE IM ONE (17:00)
--- NOTE | 2019-04-04 19:30 | PDOC.HOSPP ---
- Subjective Encounter Date: 04/04/19 Encounter Time: 09:00 Subjective: Patient seen and examined for med mngt. No CP or SOB. No new complaints. No overnight events - Objective Vital Signs & Weight: Vital Signs (12 hours) Temp Pulse Resp BP Pulse Ox 04/04/19 15:27 99.8 F H 64 16 134/78 96 04/04/19 12:50 98.4 F 69 16 119/72 99 04/04/19 08:00 95 Weight Admit Weight 178 lb Weight 178 lb I&O: 04/03/19 04/04/19 04/05/19 06:59 06:59 06:59 Intake Total 850 Output Total 1775 Balance -925 Result Diagrams: 04/04/19 04:17 EKG Reviewed by me: Yes (SB) Hospitalist ROS - Review of Systems Respiratory: denies: cough, dry, shortness of breath, hemoptysis, SOB with excertion, pleuritic pain, sputum, wheezing, other Cardiovascular: denies: chest pain, palpitations, orthopnea, paroxysmal noc. dyspnea, edema, light headedness, other Gastrointestinal: denies: nausea, vomiting, abdominal pain, diarrhea, constipation, melena, hematochezia, other - Medication Medications: Active Medications Generic Name Dose Route Start Last Admin Trade Name Freq PRN Reason Stop Dose Admin Hydrocodone Bitart/Acetaminophen 1 tab 04/04/19 15:12 04/04/19 16:06 [place] 7.5/325 PO 1 tab Q4H PRN Administration Mild Pain (1-3) Allopurinol 300 mg 04/03/19 09:00 04/04/19 07:41 Zyloprim PO 300 mg DAILY CLOTILDE Administration Alprazolam 0.5 mg 04/03/19 21:00 04/03/19 19:49 Xanax PO 0.5 mg HS CLOTILDE Administration Aspirin 81 mg 04/03/19 09:00 04/04/19 07:41 Ecotrin PO 81 mg BID CLOTILDE Administration Ferrous Gluconate 324 mg 04/04/19 09:00 04/04/19 07:42 Fergon PO 324 mg BID CLOTILDE Administration HCTZ/Losartan Potassium 1 tab 04/04/19 09:00 04/04/19 10:46 Hyzaar 100/25 PO Not Given DAILY CLOTILDE Sodium Chloride 1,000 mls @ 100 mls/hr 04/03/19 08:45 04/04/19 16:10 Normal Saline 0.9% IV Not Given .Q10H CLOTILDE Ropivacaine 250 ml/ Device 250 mls @ 10 mls/hr 04/03/19 09:43 04/04/19 13:18 NERVE BLCK 250 mls INF CLOTILDE Administration Iron/Minerals/Multivitamins 1 tab 04/04/19 09:00 04/04/19 07:41 Theragran M PO 1 tab DAILY CLOTILDE Administration Nebivolol 5 mg 04/03/19 09:00 04/04/19 07:42 Bystolic PO Not Given DAILY CLOTILDE Pantoprazole Sodium 40 mg 04/04/19 09:00 04/04/19 07:41 Protonix PO 40 mg DAILY CLOTILDE Administration Senna/Docusate Sodium 2 tab 04/04/19 09:00 04/04/19 07:41 Senokot S PO 2 tab BID CLOTILDE Administration Sertraline HCl 100 mg 04/03/19 09:00 04/04/19 07:42 Zoloft PO 100 mg DAILY CLOTILDE Administration Tramadol HCl 100 mg 04/03/19 09:43 04/04/19 13:17 Ultram PO 100 mg Q6H PRN Administration Moderate Pain 4-6 Trazodone HCl 100 mg 04/03/19 21:00 04/03/19 19:49 Desyrel PO 100 mg HS CLOTILDE Administration Trospium 20 mg 04/03/19 21:00 04/04/19 07:42 Trospium PO 20 mg BID CLOTILDE Administration - Exam General Appearance: NAD Neck: supple, no JVD Heart: RRR, no gallops, no rubs Respiratory: CTAB, no wheezes, no rales, normal chest expansion Gastrointestinal: soft, non-tender, non-distended, normal bowel sounds Extremities: no edema Neurological: no new deficit Hosp A/P (1) Dyslipidemia Code(s): E78.5 - HYPERLIPIDEMIA, UNSPECIFIED Status: Chronic (2) GERD (gastroesophageal reflux disease) Code(s): K21.9 - GASTRO-ESOPHAGEAL REFLUX DISEASE WITHOUT ESOPHAGITIS Status: Chronic (3) Gout Code(s): M10.9 - GOUT, UNSPECIFIED Status: Chronic (4) HTN (hypertension) Code(s): I10 - ESSENTIAL (PRIMARY) HYPERTENSION Status: Chronic (5) Obesity (BMI 30.0-34.9) Code(s): E66.9 - OBESITY, UNSPECIFIED Status: Chronic (6) Anxiety Code(s): F41.9 - ANXIETY DISORDER, UNSPECIFIED Status: Chronic - Plan incentive spirometry, DVT proph w/SCDs Cont Allopurinol Hold Losartan/HCTX today Cont Zoloft and Bystolic Will follow.
[2019-04-04] MEDS: ALPRAZolam 0.5 MG TAB PO SCH (19:41)
[2019-04-04] MEDS: traZODone HCl 50 MG TAB PO SCH (19:42)
[2019-04-05] MEDS: HYDROcodone/Acetaminophen 7.5/325 mg Tablet PO PRN ×4 (00:31→13:59)
[2019-04-05 05:19] LABS: Hemoglobin 10.8 g/dL (12.0-16.0); Mean Corpuscular HGB CONC 33.6 g/dL (32.0-36.0); Mean Corpuscular Hemoglobin 30.5 pg (27.0-31.0); Mean Platelet Volume 8.5 fL (7.4-10.4); Platelet Count 187 thou/uL (130-400); RBC Distribution Width 12.5 % (11.5-14.5); Red Blood Cell (RBC) Count 3.55 mill/uL (4.20-5.40); White Blood Cell (WBC) Count 7.7 thou/uL (4.8-10.8)
[2019-04-05 08:07] VITALS: BP 136/75; TEMP 98.4
[2019-04-05] MEDS: Allopurinol 300 MG TAB PO SCH (08:50)
[2019-04-05] MEDS: Ferrous Gluconate 324 MG TAB PO SCH (08:50)
[2019-04-05] MEDS: Aspirin 81 mg Enteric Coated Tablet PO SCH (08:50)
[2019-04-05] MEDS: Multivitamin W/ Minerals 1 TAB PO SCH (08:51)
[2019-04-05] MEDS: Nebivolol HCl 5 MG TAB PO SCH (08:51)
[2019-04-05] MEDS: Losartan/Hydrochlorothiazide 100 mg/25 mg Tablet PO SCH (08:52)
[2019-04-05] MEDS: Senokot S 8.6-50 MG TAB PO SCH (08:54)
[2019-04-05] MEDS: Trospium 20 MG TAB PO SCH (09:01)
[2019-04-05] MEDS: Sodium Chloride 0.9% 1,000 ML IV SCH (14:02)
== END 2019-04-05 15:52 | disposition home or self-care (01) | DRG 470 ==
LOC: SURG A 04-03 08:04 → SJJU 04-03 14:36
PROVIDERS: ADMIT Orthopaedic Surgery; ATTEND Orthopaedic Surgery
PROC: 0SRC0J9 Replacement of Right Knee Joint with Synthetic Substitute, Cemented, Open Approach (ICD-10-PCS; principal; 2019-04-03)
PROC: 8E0YXBZ Computer Assisted Procedure of Lower Extremity (ICD-10-PCS; 2019-04-03)
DX: M17.11 Unilateral primary osteoarthritis, right knee (principal); F41.9 Anxiety disorder, unspecified; F32.9 Major depressive disorder, single episode, unspecified; E78.5 Hyperlipidemia, unspecified; K21.9 Gastro-esophageal reflux disease without esophagitis; M10.9 Gout, unspecified; I10 Essential (primary) hypertension; E66.9 Obesity, unspecified; K43.9 Ventral hernia without obstruction or gangrene; Z68.31 Body mass index [BMI] 31.0-31.9, adult; Z91.040 Latex allergy status; Z90.710 Acquired absence of both cervix and uterus; Z90.89 Acquired absence of other organs
CPT/HCPCS: 36415; 85027; 90471; 90670; C1713; C1776; G0009; J0690; J1100; J1885; J2001; J2250; J2405; J2704; J2795; J3010; J3370; J3490

== ENCOUNTER 2019-05-10 08:58 | Outpatient (CLI) | payer MEDICARE, BC ==
--- NOTE | 2019-05-10 10:29 | ULT ---
HEPATIC DOPPLER ULTRASOUND: DATE: 05/10/2019. COMPARISON: None. HISTORY: Non-alcoholic steatohepatitis, irritable bowel syndrome with diarrhea. TECHNIQUE: Multiplanar, leon scale sonographic imaging of the abdomen obtained. The hepatic and splenic vascula ture is assessed with color flow/spectral analysis. FINDINGS: Imaged portions of the pancreas appear grossly unremarkable. Visualized IVC and aorta appear within normal limits as well. No focal liver lesion. No intrahepatic biliary dilatation. The common duct measures 3 mm, within normal limits. Gallbladder appears surgically absent. Main portal vein, hepatic artery, left and right portal vein, left, right, and middle hepatic vein pa tent and demonstrate appropriate flow direction and waveforms. The splenic artery and vein are patent and demonstrate appropriate waveforms. The spleen measures up to 10.1 cm, within normal limits. IMPRESSION: Patent hepatic and splenic vasculature with normal waveforms and flow direction. POS: [facility]
== END 2019-05-10 08:59 | disposition home or self-care (01) ==
LOC: BICULT 08:58
PROVIDERS: ATTEND Internal Medicine Gastroenterology
DX: K58.0 Irritable bowel syndrome with diarrhea (principal); K75.81 Nonalcoholic steatohepatitis (NASH)
CPT/HCPCS: 36415; 76705; 82607; 82728; 82746; 83540; 83550; 85014; 85018

== ENCOUNTER 2020-01-02 12:58 | Outpatient (CLI) | payer MEDICARE, BC ==
--- NOTE | 2020-01-02 13:45 | CT ---
CT ABDOMEN NONCONTRAST CT PELVIS NONCONTRAST: (Urolithiasis protocol) DATE: 01/02/2020 HISTORY: 69-year-old female with calculus of kidney, follow-up. COMPARISON: 09/20/2016 TECHNIQUE: IV injection of iodinated contrast media: None Oral contrast media: None FINDINGS: Other than for urolithiasis, the lack of IV and oral contrast limits the evaluation. Liver: No contour abnormalities. Unlike the previous CT, there is currently no fatty liver. Cholecystectomy clips in gallbladder fossa. Spleen: No splenomegaly. Pancreas: No contour abnormalities. Adrenals: No mass. Kidneys: Tiny 2 x 3 mm calculus at left renal lower pole calyx remains. No other nephrolithiasis or o vert hydronephrosis. Ureters: No calculi. Bladder: No calculi. Abdominal aorta: No aneurysm. Small bowel: No dilation. Colon: No adjacent fat stranding. Appendix: No dilation or adjacent fat stranding. Free air: None Free fluid: None IMPRESSION: 1. No acute findings. 2. Minimal nephrolithiasis: Single tiny left renal calculus, unchanged. 3) status post cholecystectomy
== END 2020-01-02 12:59 | disposition home or self-care (01) ==
LOC: BICCT 12:58
PROVIDERS: ATTEND Urology
DX: N20.0 Calculus of kidney (principal); Z90.49 Acquired absence of other specified parts of digestive tract
CPT/HCPCS: 74176

== ENCOUNTER 2020-01-14 10:47 | Outpatient (CLI) | payer MEDICARE, BC ==
--- NOTE | 2020-01-14 11:37 | MMO ---
Bilateral MAMMO Bilat Screen [facility]. CLINICAL HISTORY: Patient is 69 years old and is seen for screening. The patient has the following family history of breast cancer: mother, at age 50, malignant (generic). The patient has no personal history of cancer. VIEWS: The views performed were: bilateral craniocaudal with tomosynthesis and bilateral mediolateral oblique with tomosynthesis. FILMS COMPARED: The present examination has been compared to prior imaging studies performed at [facility] on 04/02/2010, 10/09/2015 and 06/26/2018, and at [facility] on 11/15/2000. This study has been interpreted with the assistance of computer-aided detection. MAMMOGRAM FINDINGS: There are scattered fibroglandular densities. There are stable benign appearing calcifications seen in both breasts. There are also vascular calcifications. There are no suspicious masses, suspicious calcifications, or new areas of architectural distortion. IMPRESSION: THERE IS NO MAMMOGRAPHIC EVIDENCE OF MALIGNANCY. A ROUTINE FOLLOW-UP MAMMOGRAM IN 1 YEAR IS RECOMMENDED. THE RESULTS OF THIS EXAM WERE SENT TO THE PATIENT. ACR BI-RADS Category 2 - Benign finding MAMMOGRAPHY NOTE: 1. A negative mammogram report should not delay a biopsy if a dominant of clinically suspicious mass is present. 2. Approximately 10% to 15% of breast cancers are not detected by mammography. 3. Adenosis and dense breasts may obscure an underlying neoplasm. Reported by: ROSALIO KHAN MD Electonically Signed: [id number]
== END 2020-01-14 10:48 | disposition home or self-care (01) ==
LOC: BICMAMMO 10:47
PROVIDERS: ATTEND Internal Medicine
DX: Z12.31 Encounter for screening mammogram for malignant neoplasm of breast (principal); Z80.3 Family history of malignant neoplasm of breast
CPT/HCPCS: 77063; 77067

== ENCOUNTER 2020-07-15 10:23 | Outpatient (CLI) | payer MEDICARE, BC ==
--- NOTE | 2020-07-15 11:14 | CT ---
CT of the neck with and without contrast-parathyroid protocol: 07/15/2020 COMPARISON: None HISTORY: Elevated vitamin D and calcium levels, fatigue TECHNIQUE: Axial CT imaging obtained at 2 mm intervals through the neck with and without contrast usi ng parathyroid protocol. Coronal and sagittal reformatted imaging of the postcontrast images provided FINDINGS: The visualized lung apices demonstrate mild hazy increased density bilaterally, likely on t he basis of volume loss. Mild pneumonitis in the proper clinical setting cannot be excluded. Motion artifact on the noncontrast imaging is present through the region of the thyroid gland. Incide ntal note is made of coronary arterial calcification. Partially imaged paranasal sinuses and mastoid air cells are well-aerated. The retroantral fat, parapharyngeal fat, parotid gland, and submandibular glands unremarkable bilater ally. Tonsillar pillars, epiglottis and preepiglottic fat, hyoid bone, thyroid cartilage, cricoid cartilage, and level of the glottis appear unremarkable. Subcentimeter hypodense thyroid nodules are noted bilaterally measuring up to 5-6 mm.. Arterial structures of the neck appear patent. No neck lymphadenopathy. Review of the osseous structures demonstrates multilevel cervical spine facet and uncovertebral osteo phyte formation, right greater than left. There is degenerative change at the atlantoaxial interspace. Disc space narrowing with anterior and posterior osteophyte noted at C5-6. IMPRESSION: No obvious parathyroid adenoma. Recommend correlation with nuclear medicine scan.
[2020-07-15] MEDS ORDERED: Iopamidol-370 76% 500 ML 1 ML ONE (13:28)
== END 2020-07-15 10:24 | disposition home or self-care (01) ==
LOC: BICCT 10:23
PROVIDERS: ATTEND Specialist
DX: E21.3 Hyperparathyroidism, unspecified (principal)
CPT/HCPCS: 70492; 82565; Q9967

== ENCOUNTER 2020-08-08 08:18 | Outpatient (CLI) | payer MEDICARE, BC ==
--- NOTE | 2020-08-08 11:50 | NM ---
NUCLEAR MEDICINE PARATHYROID SCAN WITH SPECT CT: DATE: 08/08/2020. HISTORY: Hyperparathyroidism, hypercalcemia. TECHNIQUE: Anterior planar imaging is obtained following the intravenous administration of 23.7 mCi technetium 9 9m labeled sestamibi. Anterior, HINDS, and ALLY imaging of the neck is obtained immediately following injection as well as 1 hour and 2 hours following injection. In addition, SPECT imaging with correlat e of CT examination performed. FINDINGS: The imaged lung apices appear unremarkable. Review of the imaged osseous structures demonstrates mult ilevel cervical spine degenerative change. The planar imaging of the neck demonstrates normal radiotracer distribution within the neck on post i njection imaging. The 2 hour delayed imaging demonstrates no focal area of persistent residual radiotracer activity. The SPECT imaging demonstrates no abnormal radiotracer accumulation within the neck. IMPRESSION: Unremarkable parathyroid examination as detailed above. Transcribed Date/Time: 08/08/2020 11:57 AM
== END 2020-08-08 08:19 | disposition home or self-care (01) ==
LOC: NM 08:18
PROVIDERS: ATTEND Specialist
DX: E21.3 Hyperparathyroidism, unspecified (principal)
CPT/HCPCS: 78072; A9500

== ENCOUNTER 2021-01-15 12:55 | Outpatient (CLI) | payer MEDICARE, BC | END 2021-01-15 12:56 | disposition home or self-care (01) | LOC: BICMAMMO 12:55 | PROVIDERS: ATTEND Internal Medicine | DX: Z12.31 Encounter for screening mammogram for malignant neoplasm of breast (principal); Z80.3 Family history of malignant neoplasm of breast | CPT/HCPCS: 77063; 77067 ==

== ENCOUNTER 2021-01-15 13:44 | Outpatient (CLI) | payer MEDICARE, BC | END 2021-01-15 13:45 | disposition home or self-care (01) | LOC: BICULT 13:44 | PROVIDERS: ATTEND Urology | DX: N20.0 Calculus of kidney (principal) | CPT/HCPCS: 74018; 76770 ==

== ENCOUNTER 2021-11-16 08:52 | Emergency (ER) | payer MEDICARE, BC ==
[2021-11-16] MEDS ORDERED: Acetaminophen 500 MG TAB ONE (09:37)
[2021-11-16] MEDS ORDERED: Ketorolac Tromethamine 30 MG/ML VIAL ONE (09:37)
[2021-11-16 09:44] LABS: #Basophils 0.1 thou/uL (0.0-0.2); #Eosinphils 0.1 thou/uL (0.0-0.7); #Lymphocytes 2.4 thou/uL (1.20-3.40); #Monocytes 0.3 thou/uL (0.11-0.59); %Basophils 1.3 % (0.0-1.0); %Eosinophils 1.8 % (0.0-10.0); %Lymphocytes 34.9 % (21.0-51.0); %Monocytes 4.3 % (0.0-10.0); %Neutrophils 57.7 % (42.0-75.0); Hemoglobin 13.5 g/dL (12.0-16.0); Mean Corpuscular HGB CONC 32.6 g/dL (32.0-36.0); Mean Corpuscular Hemoglobin 32.1 pg (27.0-31.0); Mean Corpuscular Volume 98.3 fL (78.0-98.0); Mean Platelet Volume 7.1 fL (7.4-10.4); Platelet Count 280 thou/uL (130-400); Red Blood Cell (RBC) Count 4.21 mill/uL (4.20-5.40)
[2021-11-16 10:10] LABS: ALT (SGPT) 23 U/L (8-55); AST (SGOT) 30 U/L (5-34); Albumin 4.5 g/dL (3.4-4.8); Alkaline Phosphatase 77 U/L (40-110); Anion Gap 15 mmol/L (10-20); BUN (Urea Nitrogen) 18 mg/dL (9.8-20.1); Bilirubin, Total 0.3 mg/dL (0.2-1.2); Calc. Creatinine Clearance 0 mL/min (70-130); Calcium 10.6 mg/dL (7.8-10.44); Carbon Dioxide 25 mmol/L (23-31); Chloride 102 mmol/L (98-107); Globulin 3.1 g/dL (2.4-3.5); Glucose 99 mg/dL (83-110); Potassium 3.9 mmol/L (3.5-5.1); Protein, Total 7.6 g/dL (5.8-8.1); Sodium 138 mmol/L (136-145)
[2021-11-16] MEDS ORDERED: Morphine 4 MG/ML VIAL ONE (11:58)
== END 2021-11-16 12:50 | disposition home or self-care (01) ==
LOC: ERS 08:52
DX: S22.20XA Unspecified fracture of sternum, initial encounter for closed fracture (principal); S20.01XA Contusion of right breast, initial encounter; E04.1 Nontoxic single thyroid nodule; E78.5 Hyperlipidemia, unspecified; E78.00 Pure hypercholesterolemia, unspecified; I10 Essential (primary) hypertension; Z79.899 Other long term (current) drug therapy; V43.53XA Car driver injured in collision with pick-up truck in traffic accident, initial encounter; Y92.410 Unspecified street and highway as the place of occurrence of the external cause
CPT/HCPCS: 36415; 71275; 74174; 80053; 84484; 85025; 93005; 96374; 96375; J1885; J2270

== ENCOUNTER 2022-03-16 13:44 | Outpatient (CLI) | payer MEDICARE, BC | END 2022-03-16 13:45 | disposition home or self-care (01) | LOC: BICULT 13:44 | PROVIDERS: ATTEND Urology | DX: N20.0 Calculus of kidney (principal); R79.89 Other specified abnormal findings of blood chemistry; N28.89 Other specified disorders of kidney and ureter | CPT/HCPCS: 74018; 76770 ==

== ENCOUNTER 2022-06-22 10:29 | Outpatient (CLI) | payer MEDICARE, BC | END 2022-06-22 10:30 | disposition home or self-care (01) | LOC: BICCT 10:29 | PROVIDERS: ATTEND Urology | DX: N20.0 Calculus of kidney (principal); R79.89 Other specified abnormal findings of blood chemistry | CPT/HCPCS: 74176 ==

== ENCOUNTER 2022-07-05 08:45 | Outpatient (CLI) | payer MEDICARE, BC | END 2022-07-05 08:46 | disposition home or self-care (01) | LOC: NM 08:45 | PROVIDERS: ATTEND Specialist | DX: E34.9 Endocrine disorder, unspecified (principal) | CPT/HCPCS: 78072; A9500 ==

== ENCOUNTER 2022-09-01 12:54 | Outpatient (CLI) | payer MEDICARE, BC ==
[2022-09-01] MEDS ORDERED: Magnevist 469MG/ML 20 ML VIAL ONE (15:18)
== END 2022-09-01 12:55 | disposition home or self-care (01) ==
LOC: MRI 12:54
PROVIDERS: ATTEND Internal Medicine
DX: R26.81 Unsteadiness on feet (principal); I67.89 Other cerebrovascular disease
CPT/HCPCS: 70553; A9579

== ENCOUNTER 2022-11-10 10:45 | Outpatient (CLI) | payer MEDICARE, BC | END 2022-11-10 10:46 | disposition home or self-care (01) | LOC: BICRAD 10:45 | PROVIDERS: ATTEND Internal Medicine | DX: M25.511 Pain in right shoulder (principal) ==

== ENCOUNTER 2022-11-26 12:34 | Outpatient (CLI) | payer MEDICARE, BC | END 2022-11-26 12:35 | disposition home or self-care (01) | LOC: SCSMRI 12:34 | PROVIDERS: ATTEND Internal Medicine | DX: M25.511 Pain in right shoulder (principal); M75.121 Complete rotator cuff tear or rupture of right shoulder, not specified as traumatic; S46.811A Strain of other muscles, fascia and tendons at shoulder and upper arm level, right arm, initial encounter; M19.011 Primary osteoarthritis, right shoulder; M24.111 Other articular cartilage disorders, right shoulder ==

== ENCOUNTER 2023-01-26 12:39 | Outpatient (CLI) | payer MEDICARE, BC | END 2023-01-26 12:40 | disposition home or self-care (01) | LOC: BICMAMMO 12:39 | PROVIDERS: ATTEND Internal Medicine | DX: Z12.31 Encounter for screening mammogram for malignant neoplasm of breast (principal); Z80.3 Family history of malignant neoplasm of breast | CPT/HCPCS: 77063; 77067 ==

== ENCOUNTER 2023-01-28 14:41 | Outpatient (CLI) | payer MEDICARE, BC | END 2023-01-28 14:42 | disposition home or self-care (01) | LOC: BICMAMMO 14:41 | PROVIDERS: ATTEND Internal Medicine | DX: Z13.820 Encounter for screening for osteoporosis (principal); Z78.0 Asymptomatic menopausal state; M81.0 Age-related osteoporosis without current pathological fracture; M85.851 Other specified disorders of bone density and structure, right thigh | CPT/HCPCS: 77080 ==

== ENCOUNTER 2024-03-13 13:36 | Outpatient (CLI) | payer MEDICARE | END 2024-03-13 13:37 | disposition home or self-care (01) | LOC: BICRAD 13:36 | PROVIDERS: ATTEND Urology | DX: N20.0 Calculus of kidney (principal) | CPT/HCPCS: 36415; 74018; 80048; 81001; 83970; 84550; 87086 ==

== ENCOUNTER 2025-05-16 10:34 | Outpatient (CLI) | payer MEDICARE | END 2025-05-16 10:35 | disposition home or self-care (01) | LOC: BICRAD 10:34 | PROVIDERS: ATTEND Internal Medicine | DX: J06.9 Acute upper respiratory infection, unspecified (principal); R05.9 Cough, unspecified; R09.89 Other specified symptoms and signs involving the circulatory and respiratory systems; I51.7 Cardiomegaly | CPT/HCPCS: 36415; 71046; 80053; 80061; 82306; 82607; 82746; 84439; 84443; 85025 ==